=== PATIENT | male | born 1945 | race Caucasian/White ===

== ENCOUNTER → 2020-04-27 09:20 | Outpatient (BNVA) | payer MEDICARE, SELFPAY | PROVIDERS: PCP Internal Medicine; Visit Provider Urology | DX: N40.1 Benign prostatic hyperplasia with lower urinary tract symptoms (principal); R35.1 Nocturia; R97.20 Elevated prostate specific antigen [PSA]; N52.9 Male erectile dysfunction, unspecified | CPT/HCPCS: Q3014 ==

== ENCOUNTER → 2020-10-26 10:34 | Outpatient (BNVA) | payer MEDICARE, SELFPAY | PROVIDERS: PCP Internal Medicine; Visit Provider Urology | DX: Z13.89 Encounter for screening for other disorder (principal) | CPT/HCPCS: Q3014 ==

== ENCOUNTER → 2021-04-19 08:18 | Outpatient (BNVA) | payer MEDICARE, SELFPAY | PROVIDERS: PCP Internal Medicine; Visit Provider Urology | DX: Z13.89 Encounter for screening for other disorder (principal) | CPT/HCPCS: Q3014 ==

== ENCOUNTER 2021-06-16 11:22 | Outpatient (REF) | payer MEDICARE, SELFPAY ==
[2021-06-16 11:35] VITALS: BMI 28.0
[2021-06-16 11:36] VITALS: BP 150/67; PULSE 67; RESP 16; TEMP 36.6; O2SAT 98
--- NOTE | 2021-06-16 12:37 | W.PM.OPN ---
Operative Note Operative Note Date of Service: 06/16/21 Narrative: Preoperative diagnosis: Elevated PSA Postoperative diagnosis: Elevated PSA Procedure: 1. transrectal ultrasound measurement of prostate 2. transrectal ultrasound-guided pudendal nerve block 3. transrectal ultrasound-guided prostate biopsy 12 core Surgeon: Dr. Bradford Szymanski Anesthetic: Local Indications for procedure: Elevated PSA 5.6 Procedure: After informed consent was verified, the patient was brought into the procedure area and lay left-hand side down on the table. Patient identity confirmed. Perioperative antibiotics confirmed. Iodine 10cc with Gel was placed per rectum Ultrasound probe was placed per rectum The prostate was measured in 3 dimensions Total volume equals 40 gm There were no cystic structures and only trace calcifications noted on right side transition zone and the prostate was homogeneous in nature A ultrasound-guided pudendal nerve block was performed using 10 cc of 1% lidocaine. 8 cc was placed at the base and 2 cc of the apex. A 12 core biopsy was performed with 6 cores each side. Two cores were taken at the apex, mid and base. Cores were spaced between lateral and medial. He tolerated the procedure well. Was able to ambulate to bathroom after 5 minutes. Printed instructions regarding antibiotic use and common side effects such as low-grade temperature and bleeding were given Pathology: 12 core prostate biopsy.
[2021-06-16 12:40] VITALS: BP 134/60; PULSE 65; RESP 16; O2SAT 97
== END 2021-06-16 11:23 | disposition home or self-care (01) ==
LOC: HO.MS 11:22
PROVIDERS: Visit Provider Urology
PROC: (CPT 55700; principal; 2021-06-16 12:00)
DX: C61 Malignant neoplasm of prostate (principal); R97.20 Elevated prostate specific antigen [PSA]
CPT/HCPCS: 55700; 76942; 88305; 88344

== ENCOUNTER → 2021-06-23 10:12 | Outpatient (BNVA) | payer MEDICARE, SELFPAY | PROVIDERS: PCP Internal Medicine; Visit Provider Urology | DX: C61 Malignant neoplasm of prostate (principal) | CPT/HCPCS: Q3014 ==

== ENCOUNTER 2021-07-04 08:21 | Outpatient (REF) | payer MEDICARE, SELFPAY ==
--- NOTE | ~2021-07-04 | CT_ITS ---
EXAMINATION: CT PELVIS WITHOUT CONTRAST CLINICAL INFORMATION: Prostate cancer COMPARISON: None TECHNIQUE: Helical scanning was performed with submillimeter collimation through the pelvis. Sagittal and coronal multiplanar 2-D reconstructions were obtained. This CT examination was performed using dose optimization techniques as appropriate, variously including the following: *Automated exposure control *Adjustment of mA and/or kV according to patient size (this includes techniques or standardized protocols for targeted exams where dose is matched to indication/reason for exam; i.e. extremities or head) *Use of iterative reconstruction technique DLP: 636 mGy-cm FINDINGS: The prostate gland is upper normal in size measures 3 x 4 x 4.5 cm in AP transverse longitudinal dimension. No pelvic mass or adenopathy is seen. The bladder is unremarkable. There is diverticulosis of the colon. Visualized bowel is otherwise unremarkable. The appendix is unremarkable. There is evidence of atherosclerotic disease. No aneurysm is seen. There is ectasia of the right common iliac artery measuring 1.7 cm. There are small umbilical and bilateral inguinal hernias. There is no ascites. There are degenerative changes of the lower lumbar spine. No fracture or bone lesion is seen. CT/CT pelvis wo con IMPRESSION: Upper normal-size prostate gland. No pelvic mass or adenopathy. No bone lesion.
== END 2021-07-04 08:22 | disposition home or self-care (01) ==
LOC: HO.CT 08:21
PROVIDERS: PCP Internal Medicine; Visit Provider Urology
DX: C61 Malignant neoplasm of prostate (principal)
CPT/HCPCS: 72192

== ENCOUNTER → 2021-07-29 08:50 | Outpatient (BNVA) | payer MEDICARE, SELFPAY | PROVIDERS: PCP Internal Medicine; Visit Provider Urology | DX: N52.01 Erectile dysfunction due to arterial insufficiency (principal); C61 Malignant neoplasm of prostate | CPT/HCPCS: Q3014 ==

== ENCOUNTER → 2021-11-30 13:50 | Outpatient (BNVA) | payer MEDICARE, SELFPAY | PROVIDERS: PCP Internal Medicine; Visit Provider Urology | DX: N52.01 Erectile dysfunction due to arterial insufficiency (principal); C61 Malignant neoplasm of prostate | CPT/HCPCS: 51798; 99212 ==

== ENCOUNTER → 2022-06-07 08:27 | Outpatient (BNVA) | payer MEDICARE, SELFPAY | PROVIDERS: PCP Internal Medicine; Visit Provider Urology | DX: C61 Malignant neoplasm of prostate (principal); N52.01 Erectile dysfunction due to arterial insufficiency | CPT/HCPCS: 51798; 99212 ==

== ENCOUNTER → 2022-10-06 10:05 | Outpatient (BNVA) | payer MEDICARE, SELFPAY | PROVIDERS: PCP Internal Medicine; Visit Provider Urology | DX: C61 Malignant neoplasm of prostate (principal) | CPT/HCPCS: Q3014 ==

== ENCOUNTER 2022-11-23 07:29 | Outpatient (REF) | payer MEDICARE, SELFPAY ==
[2022-11-23 07:46] VITALS: BMI 31.6
[2022-11-23 07:47] VITALS: BP 152/72; PULSE 66; RESP 16; TEMP 36.4; O2SAT 97
--- NOTE | 2022-11-23 08:17 | W.PM.OPN ---
Operative Note Operative Note Date of Service: 11/23/22 Narrative: Preoperative diagnosis: Prostate Cancer Postoperative diagnosis: Prostate Cancer Procedure: 1. transrectal ultrasound measurement of prostate 2. transrectal ultrasound-guided pudendal nerve block 3. transrectal ultrasound-guided prostate biopsy 12 core Surgeon: Dr. Bradford Szymanski Anesthetic: Local Indications for procedure: Prostate Cancer - low volume low grade left base Procedure: After informed consent was verified, the patient was brought into the procedure area and lay left-hand side down on the table. Patient identity confirmed. Perioperative antibiotics confirmed. Safety pause time out performed. PETTY performed to dilate rectal sphincter Iodine 10cc with Gel was placed per rectum Ultrasound probe was placed per rectum The prostate was measured in 3 dimensions Total volume equals 35 gm No cystic structures were noted - calcifications were noted at the surgical margin The prostate was otherwise homogeneous in nature An ultrasound-guided pudendal nerve block was performed using 10 cc of 1% lidocaine. 8 cc was placed at the base and 2 cc of the apex. A 12 core biopsy was performed with 6 cores each side. Two cores were taken at the apex, mid and base. Cores were spaced between lateral and medial. He tolerated the procedure well. Was able to ambulate to bathroom after 5 minutes. Printed instructions regarding antibiotic use and common side effects such as low-grade temperature, potential infection and bleeding were given Pathology: 12 core prostate biopsy.
[2022-11-23 08:35] VITALS: BP 142/67; PULSE 70; RESP 16; O2SAT 94
== END 2022-11-23 07:30 | disposition home or self-care (01) ==
LOC: HO.MS 07:29
PROVIDERS: PCP Internal Medicine; Visit Provider Urology
PROC: (CPT 55700; principal; 2022-11-23 08:00)
DX: C61 Malignant neoplasm of prostate (principal)
CPT/HCPCS: 55700; 76942; 88305; 88344

== ENCOUNTER → 2022-11-29 11:37 | Outpatient (BNVA) | payer MEDICARE, SELFPAY | PROVIDERS: PCP Internal Medicine; Visit Provider Urology ==

== ENCOUNTER → 2022-12-07 11:19 | Outpatient (BNVA) | payer MEDICARE, SELFPAY | PROVIDERS: PCP Internal Medicine; Visit Provider Urology | DX: C61 Malignant neoplasm of prostate (principal); N40.1 Benign prostatic hyperplasia with lower urinary tract symptoms; N13.8 Other obstructive and reflux uropathy; R39.12 Poor urinary stream; N52.9 Male erectile dysfunction, unspecified; Z79.899 Other long term (current) drug therapy | CPT/HCPCS: Q3014 ==

== ENCOUNTER 2023-01-12 12:59 | Outpatient (AMB) | payer MEDICARE, SELFPAY ==
--- NOTE | 2023-01-12 13:02 | A.OFFVIS_ITS ---
Intake Intake Visit Reasons: 4w follow up Intake Note: Patient is present for Follow Up Urology Med: Finasteride, Sildenafil Antibiotic Allergy:None Blood Thinner: None Pharmacy: [facility] PVR:0ml Allergies atorvastatin [Lipitor] Allergy (Unknown, Verified 01/12/23 13:03) Unknown PLASTIC TAPE Adverse Reaction (Uncoded 01/12/23 13:03) Rash HPI HPI Comments History of Present Illness Details Vikram is a pleasant male. He is a patient of Dr. Everett. He is seen for the following - elevated PSA - BPH symptoms Repeat biopsy unfavorable intermediate 80% single core Discussed MRI imaging for staging potential cryotherapy. At this point in time he would not like to have contrast. Will send for radiation oncology assessment Would recommend space oar placement if elects for radiation Does have background with heart failure and may opt for watchful waiting Yaima case would not be unreasonable to perform intermittent hormone therapy Prostate cancer - favorable intermediate risk June 2020 - treatment active surveillance 2nd Biopsy 12/01 [place] score: 7 (4 + 3) (left mid lateral) 80% , 7 (3 + 4) (left apex, lateral and medial) 40%, 30%, 6 (3 + 3) (left mid medial) 20% % of pattern 4: 37.5% Tumor quantitation: Number cores positive: 4 Total number of cores: 19 % of tissue involved: 12.3% Periprostatic fat inv.: Not identified Seminal vesicle inv.: Not identified Perineural inv.: Not identified Lymphovascular invasion: Not identified Initial diagnosis with Dr. Szymanski June 2020 for PSA 5.2 Clinic Stage T1c Initial Biopsy 07/01 [place] score: 3+3=6 (left mid lateral 5% and medial 40%, left apex medial 20%, 3+4=7 (left apex lateral 25%) % of pattern 4: 10% of the tumor - Grade group: 1 and 2 - 90%/1200% Tumor quantitation: Number cores positive: 4? Total number of cores: 12 % of tissue involved: Between 5 and 10% of all tissue examined Periprostatic fat inv.: Not identified Seminal vesicle inv.:Not identified Perineural inv.: Not identified LVI: Not identified Laboratory investigations include a free and total PSA evaluation 2010 1.4, 2011 1.6, February 2013 3.0, August 2013 2.5, August 2014 2.9,, February 2015 3.2, January 2016 4.0, August 2016 4.7, free 23%, 08/26 4.8, Free 26%, 02/26 5.2 25%, 08/27 3.5, 08/28 4.2 03/30 4.4 F20%, 09/29 4.4, 03/31 5.2 - finasteride, 06/01 4.6 F 17%, 08/31 4.2 18% Imaging 07/02 CT [facility] - 07/02 [facility] Active Surveillance group Erectile dysfunction: He presents for continued evaluation and management of erectile dysfunction. Current treatment includes Viagra/sildenafil Treatment side effects include none. Prior therapies include oral medications. At this time he experiences erections are partial and adequate for vaginal penetration, that last until ejaculation, AJIT 8-11 Moderate ED. Nocturnal erections do not occur. Overall he is satisfied with the current management - Generic prescription and discounts provided [facility] Medical History Benign prostatic hyperplasia with lower urinary tract symptoms Erectile dysfunction Hyperlipidemia OA (osteoarthritis) OA (osteoarthritis) Poor urinary stream Review of Systems Const Denies chills and Denies fever(s) Card Reports no additional complaints and Denies syncope Resp Denies cough GI Denies abdominal pain and Denies heartburn Reports as per HPI and Denies change in libido Neuro Denies syncope Psych Denies change in libido Endo Denies change in libido Physical Exam Const General: cooperative, healthy appearing, comfortable and no acute distress Orientation/consciousness: patient oriented x3 HEENT Face and sinus: Yes normal facial exam Mouth: moist mucous membranes Neck Neck: Yes normal visual inspection, Yes full ROM and Yes trachea midline Chest Chest palpation & inspection: normal inspection of the chest Resp Effort & Inspection: normal respiratory effort, able to speak in complete sentences and no respiratory distress GI Inspection: Yes normal to inspection Back/Spine/Pelvis Cervical Spine: normal cervical lordosis Thoracic/Lumbar Spine: thoracic and lumbar spine normal to inspection Skin General skin exam: no rashes or lesions noted Neuro General: patient oriented x3, gait normal, tone normal and moves all extremities Extrem General: Yes normal to inspection and Yes capillary refill normal Office Procedures Post Void Residual Post Residual Void Post Void Residual (PVR): 0 [id number] Void Residual by ultrasound Results AMB Urinalysis, Automated UA Leukoctes 0 Dionna/uL Last Edit by Serenity Soliz, A on 01/12/23 13:28 UA Nitrite Negative Last Edit by Serenity Soliz, RMA on 01/12/23 13:28 UA Urobilinogen 0.2 mg/dL Last Edit by Serenity Soliz, RMA on 01/12/23 13:2 8 UA Protein 0 mg/dL Last Edit by Serenity Soliz, RMA on 01/12/23 13:28 UA pH 6.0 Last Edit by Serenity Soliz, RMA on 01/12/23 13:28 UA Blood 0 Bert/uL Last Edit by Serenity Soliz, RMA on 01/12/23 13:28 UA Specific [place] 1.010 Last Edit by Serenity Soliz, RMA on 01/12/23 13: 28 UA Ketone Negative Last Edit by Serenity Soliz, RMA on 01/12/23 13:28 UA Bilirubin 0 mg/dL Last Edit by Serenity Soliz, RMA on 01/12/23 13:28 UA Glucose 0 mg/dL Last Edit by Serenity Soliz, RMA on 01/12/23 13:28 Results Reviewed Results Reviewed: Laboratory Last Values Urine pH (Auto) 6.0 01/12/23 13:06 Specific [place] (Auto) 1.010 01/12/23 13:06 Urine Protein (Auto) 0 mg/dL 01/12/23 13:06 Glucose (UA)(Auto) 0 mg/dL 01/12/23 13:06 Urine Ketones (Auto) Negative 01/12/23 13:06 Urine Blood (Auto) 0 Bert/uL 01/12/23 13:06 Urine Nitrite (Auto) Negative 01/12/23 13:06 Urine Bilirubin (Auto) 0 mg/dL 01/12/23 13:06 Urine Urobilinogen (Auto) 0.2 mg/dL 01/12/23 13:06 Leukocyte Esterase (Auto) 0 Dionna/uL 01/12/23 13:06 Assessment & Plan Assessment & Plan (1) Erectile dysfunction due to arterial insufficiency: Code(s): N52.01 - Erectile dysfunction due to arterial insufficiency (2) Prostate cancer: Comment: 2021 Low-grade, low volume Code(s): C61 - Malignant neoplasm of prostate Plan GnRH with assessment for radiation versus intermittent hormone therapy Orders: Orders AMB Post Void Residual by ultrasound 01/12/23 N40.1 - Benign prostatic hyperplasia with lower urinary tract symptoms AMB Urinalysis Automated 01/12/23 Z13.9 - Encounter for screening, unspecified Patient Instructions: Imaging studies, laboratory and physical exam results were discussed and reviewed in detail. No major barriers to patient understanding were identified. An opportunity to ask questions regarding the treatment plan was provided. All questions were answered. The patient expressed understanding and agreement with the above treatment plan. The patient is aware they should contact our office by phone for worsening of their current condition or the appearance of new urologic symptoms. Compliance is encouraged with any medications and followup testing that is ordered. It is a privilege to participate in the urologic care of your patient. If you have any questions or concerns regarding treatment for the above conditions, or other urologic issues, please do not hesitate to contact me. The office telephone contact is [phone]. This note is constructed using voice recognition software. While every effort has been made to ensure accuracy credit representative errors may have been included. Yours sincerely, Dr Bradford Szymanski MD, [facility] - Urology Providers of Expert, Compassionate Care for the Genitourinary System Coding Level of Care Code Est Pt Level 4 (01500) Diagnoses Erectile dysfunction due to arterial insufficiency N52.01 Prostate cancer C61 CPT Codes Post Residual Void - PVR CPT Code: 41741-Puid Void Residual by ultrasound ([id number])
== END 2023-01-12 13:55 | disposition home or self-care (01) ==
PROVIDERS: PCP Internal Medicine; Visit Provider Urology
DX: N52.01 Erectile dysfunction due to arterial insufficiency (principal); C61 Malignant neoplasm of prostate
CPT/HCPCS: 99214

== ENCOUNTER → 2023-01-12 12:59 | Outpatient (BNVA) | payer MEDICARE, SELFPAY | PROVIDERS: PCP Internal Medicine; Visit Provider Urology | DX: N52.01 Erectile dysfunction due to arterial insufficiency (principal); C61 Malignant neoplasm of prostate | CPT/HCPCS: 51798; 99212 ==

== ENCOUNTER 2023-03-13 10:00 | Outpatient (AMB) | payer MEDICARE, SELFPAY ==
--- NOTE | 2023-03-13 10:01 | MHC.OFFVIS ---
Intake Intake Visit Reasons: missed GnRH appt Intake Note: Patient is Present for Telephone Follow Up For Urology Med: SILDENAFIL, CIPROFLOXACIN Antibiotic Allergy: LIPITOR Blood Thinner:NO Pharamcy:[facility] Allergies atorvastatin [Lipitor] Allergy (Unknown, Verified 03/13/23 10:03) Unknown PLASTIC TAPE Adverse Reaction (Uncoded 03/13/23 10:03) Rash HPI HPI Comments History of Present Illness Details Vikram is a pleasant male. He is a patient of Dr. Everett. He is seen for the following - elevated PSA - BPH symptoms Telemedicine Evaluation 15 min Consultation DoxQFPay Alex Video attempted Repeat biopsy unfavorable intermediate 80% single core Radiation oncology assessment - complete - good candidate Would recommend space oar placement if elects for radiation Does have background with heart failure - and undergoing open heart surgery He will call after cardiac evaluation completed Prostate cancer - favorable intermediate risk June 2020 - initial treatment active surveillance - 2nd biopsy 12/01 - unfavorable intermediate moderate volume 2nd Biopsy 12/01 [place] score: 7 (4 + 3) (left mid lateral) 80% , 7 (3 + 4) (left apex, lateral and medial) 40%, 30%, 6 (3 + 3) (left mid medial) 20% % of pattern 4: 37.5% Number cores positive: 4 Total number of cores: 19 % of tissue involved: 12.3% Periprostatic fat inv.: Not identified Seminal vesicle inv.: Not identified Perineural inv.: Not identified Lymphovascular invasion: Not identified Initial diagnosis with Dr. Szymanski June 2020 for PSA 5.2 Clinic Stage T1c Initial Biopsy 07/01 [place] score: 3+3=6 (left mid lateral 5% and medial 40%, left apex medial 20%, 3+4=7 (left apex lateral 25%) % of pattern 4: 10% of the tumor - Grade group: 1 and 2 - 90%/1200% Tumor quantitation: Number cores positive: 4? Total number of cores: 12 % of tissue involved: Between 5 and 10% of all tissue examined Periprostatic fat inv.: Not identified Seminal vesicle inv.:Not identified Perineural inv.: Not identified LVI: Not identified Laboratory investigations include a free and total PSA evaluation 2010 1.4, 2011 1.6, February 2013 3.0, August 2013 2.5, August 2014 2.9,, February 2015 3.2, January 2016 4.0, August 2016 4.7, free 23%, 08/26 4.8, Free 26%, 02/26 5.2 25%, 08/27 3.5, 08/28 4.2 03/30 4.4 F20%, 09/29 4.4, 03/31 5.2 - finasteride, 06/01 4.6 F 17%, 08/31 4.2 18% Imaging 07/02 CT [facility] - 07/02 [facility] Active Surveillance group Erectile dysfunction: He presents for continued evaluation and management of erectile dysfunction. Current treatment includes Viagra/sildenafil Treatment side effects include none. Prior therapies include oral medications. At this time he experiences erections are partial and adequate for vaginal penetration, that last until ejaculation, AJIT 8-11 Moderate ED. Nocturnal erections do not occur. Overall he is satisfied with the current management - Generic prescription and discounts provided [facility] Medical History OA (osteoarthritis) OA (osteoarthritis) Hyperlipidemia Poor urinary stream Benign prostatic hyperplasia with lower urinary tract symptoms Erectile dysfunction Review of Systems Const All systems reviewed & are unremarkable except as noted in HPI and below Reports no additional complaints Resp Reports no additional complaints GI Reports no additional complaints Reports as per HPI Musc Reports no additional complaints Physical Exam Telemedicine evaluation Appropriate responses Regular breathing rate and rhythm HEENT Head: Yes normal to inspection Ears: hearing grossly normal bilaterally Eyes General: appearance normal, both eyes and all related structures Neck Neck: Yes normal visual inspection Chest Chest palpation & inspection: normal inspection of the chest Resp Effort & Inspection: normal respiratory effort and able to speak in complete sentences Assessment & Plan Assessment & Plan (1) Prostate cancer: Comment: 2021 Low-grade, low volume Code(s): C61 - Malignant neoplasm of prostate Plan Three month follow-up Has assessment for cardiac valve surgery within the next few weeks Patient Instructions: Imaging studies, laboratory and physical exam results were discussed and reviewed in detail. No major barriers to patient understanding were identified. An opportunity to ask questions regarding the treatment plan was provided. All questions were answered. The patient expressed understanding and agreement with the above treatment plan. The patient is aware they should contact our office by phone for worsening of their current condition or the appearance of new urologic symptoms. Compliance is encouraged with any medications and followup testing that is ordered. It is a privilege to participate in the urologic care of your patient. If you have any questions or concerns regarding treatment for the above conditions, or other urologic issues, please do not hesitate to contact me. The office telephone contact is [phone]. This note is constructed using voice recognition software. While every effort has been made to ensure accuracy head of measurement & insights errors may have been included. Yours sincerely, Dr Bradford Szymanski MD, [facility] - Urology Providers of Expert, Compassionate Care for the Genitourinary System Telehealth Telehealth Location of provider rendering services: practice address Location of patient: address on file Patient Identification confirmed using: Name, : Yes Telehealth method: video Patient verbally consented to treatment: Yes Patient verbally consented to billing insurance company: Yes Patient informed of any privacy concerns related to visit: Yes Coding Level of Care Code Tele Est Pt Level 3 (76059) Diagnoses Prostate cancer C61
== END 2023-03-13 10:41 | disposition home or self-care (01) ==
LOC: HO.HUSH 10:01
PROVIDERS: PCP Internal Medicine; Visit Provider Urology
DX: C61 Malignant neoplasm of prostate (principal)
CPT/HCPCS: 99213

== ENCOUNTER → 2023-03-13 10:00 | Outpatient (BNVA) | payer MEDICARE, SELFPAY | PROVIDERS: PCP Internal Medicine; Visit Provider Urology ==